=== PATIENT | male | born 1970 | race Caucasian/White ===

== ENCOUNTER → 2018-07-22 | Outpatient (REF) ==
--- NOTE | 2018-07-22 11:36 | REP ---
PARTIAL LUMBAR SPINE, THREE VIEWS: HISTORY: Degenerative disc disease. There is no acute fracture or subluxation. The L3-4 and L4-5 intervertebral discs are decreased in height consistent with disc degeneration. A stent is present overlying the lower lumbar spine. IMPRESSION: Degenerative change as described above. Electronically Signed by Medhat Sadler MD 07/22/2018 11:37 A
== END ==
LOC: M SMT 10:46
PROVIDERS: ATTEND Internal Medicine
DX: Z02.89 Encounter for other administrative examinations (principal)